=== PATIENT | female | born 1980 | race Caucasian/White ===

== ENCOUNTER 2021-11-15 16:21 | Emergency (ER) | payer OTHER ==
[2021-11-15 17:57] VITALS: BP 132/98
== END 2021-11-15 17:57 | disposition home or self-care (01) ==
LOC: ED 16:21
DX: R51.9 Headache, unspecified (principal); M54.2 Cervicalgia; V49.40XA Driver injured in collision with unspecified motor vehicles in traffic accident, initial encounter
CPT/HCPCS: J2360